=== PATIENT | male | born 1960 | race Caucasian/White ===

== ENCOUNTER 2024-02-28 12:26 | Day surgery (SDC) | payer MEDICARE ==
[2024-02-28] MEDS: Sodium Chloride 0.9% 10 ML Syringe FLUSH PRN (11:33)
[~2024-02-28 12:26] MED LIST: Lactated Ringers 1,000 ML IV PRN
[2024-02-28] MEDS ORDERED: fentaNYL 100 MCG/2 ML SDV IV ONE (12:27)
[2024-02-28] MEDS: acetaZOLAMIDE 500 MG Cap.ER PO ONE (12:27)
[2024-02-28] MEDS ORDERED: Sodium Chloride 0.9% 10 ML Syringe IV ONE (12:27)
[2024-02-28] MEDS ORDERED: Midazolam 1 MG/ML 2 ML SDV IV ONE (12:27)
[2024-02-29 08:14] VITALS: BP 145/70; PULSE 52
== END 2024-02-28 12:55 | disposition home or self-care (01) ==
LOC: FB.SDS 12:26
PROVIDERS: ATTEND Ophthalmology
DX: H25.813 Combined forms of age-related cataract, bilateral (principal); H43.812 Vitreous degeneration, left eye; H35.033 Hypertensive retinopathy, bilateral; H52.13 Myopia, bilateral; I10 Essential (primary) hypertension; J43.9 Emphysema, unspecified; Z79.899 Other long term (current) drug therapy; F17.210 Nicotine dependence, cigarettes, uncomplicated
CPT/HCPCS: 66984; A9270; J2250; J3010; J3490; V2632; 00142

== ENCOUNTER 2024-03-13 09:57 | Day surgery (SDC) | payer MEDICARE ==
[2024-03-13] MEDS ORDERED: Midazolam 1 MG/ML 2 ML SDV IV ONE (09:58)
[2024-03-13] MEDS ORDERED: Sodium Chloride 0.9% 10 ML Syringe IV ONE (09:58)
[2024-03-13] MEDS ORDERED: fentaNYL 100 MCG/2 ML SDV IV ONE (09:58)
[2024-03-13] MEDS: Sodium Chloride 0.9% 10 ML Syringe FLUSH PRN (10:52)
[2024-03-13] MEDS: acetaZOLAMIDE 500 MG Cap.ER PO ONE (12:18)
[2024-03-13 16:06] VITALS: BP 114/61; PULSE 56
== END 2024-03-13 12:30 | disposition home or self-care (01) ==
LOC: FB.SDS 09:57
PROVIDERS: ATTEND Ophthalmology
DX: H26.9 Unspecified cataract (principal); I10 Essential (primary) hypertension; E78.00 Pure hypercholesterolemia, unspecified; J43.9 Emphysema, unspecified; F17.210 Nicotine dependence, cigarettes, uncomplicated; Z79.899 Other long term (current) drug therapy
CPT/HCPCS: A9270-GY; J2250; J3010; J3490; V2632